=== PATIENT | female | born 1990 | race Caucasian/White ===

== ENCOUNTER 2016-12-02 06:26 | Emergency (ER) | payer OTHER ==
--- NOTE | ~2016-12-02 | EKG ---
PATIENT: SHMUEL MURRAY UNIT #: [id number] Ventricular Rate: 96 BPM Atrial Rate: 96 BPM P-R Interval: 132 ms QRS Duration: 76 ms Q-T Interval: 326 ms QTC Calculation(Bezet): 411 ms P Glenvil: 11 degrees Calculated R Glenvil: 31 degrees Calculated T Glenvil: 38 degrees Diagnosis Line: Normal sinus rhythm Diagnosis Line: Normal ECG Diagnosis Line: No previous ECGs available Diagnosis Line: Confirmed by SÁNCHEZ ADKINS MD ([id number]) on Diagnosis Line: 12/02/2016 3:27:27 PM INTERPRETING MD: JED SOLANO
--- NOTE | ~2016-12-02 | CT71 ---
[facility] A Service of [facility] RADIOLOGY TEXT RESULTS PATIENT: SHMUEL MURRAY LOCATION: [facility] : 88 UNIT #: [id number] AGE: [address]: Cassidy Reilly MD SEX: F ORDER DR: [id number] [facility] [address] [place], [place] [address] [id number] E MR#: [id number] Acc #: [id number] NAME: SHMUEL MURRAY : 1990 SEX: F STUDY DATE/TIME: 12/02/2016 7:25 UNIT: [facility] ROOM: STUDY DESCRIPTION: CT Head Wo Contrast Attending Physician: Cassidy Reilly M.D. Ordering Physician: Willa Roa M.D. Primary Care Physician: Primary Care Physician No MEDICAL IMAGING REPORT This report is preliminary unless electronic signature is present EXAM CT of the abdomen and pelvis without contrast media HISTORY Lightheaded, fell down stairs at 03:30 hours with head pain. TECHNIQUE Transaxial imaging of the brain was performed without contrast media. Bone and soft tissue windows are reviewed. This CT exam was performed with one or more of the following radiation dose reduction techniques: automatic exposure control, adjustment of mA and/or kV according to patient size, and iterative reconstruction. FINDINGS Ventricular size and configuration is normal. No intra or extraaxial mass lesions, fluid collections, or mass effect are seen. No focal areas of low attenuation or evidence of acute hemorrhage. The study does show mild paranasal sinus disease in the left sphenoid air cells. Mastoid air cells are clear. CONCLUSION 1. Negative noncontrast CT of the brain. 2. Mild inflammatory disease left sphenoid air cells. Dictated by... Srinath Lees M.D. THIS IS AN ELECTRONICALLY VERIFIED REPORT Srinath Lees M.D. at 12/03/2016 8:00 AM Flor TD: 12/02/2016 10:18 [facility] A Service of [facility] RADIOLOGY TEXT RESULTS PATIENT: SHMUEL MURRAY LOCATION: [facility] #: [id number] : [birth year] UNIT #: [id number] AGE: [address]: Cassidy Reilly MD SEX: F ORDER DR: JOB #: [id number] MEDICAL IMAGING REPORT COPY
[~2016-12-02 06:26] MED LIST: BENTYL20 MG PO; MOTRIN600 M2 PO
[2016-12-02 06:36] LABS: BASOPHIL% 0.3 % (0-2.5); DIFF IND YES; EOSINOPHIL% 0.2 % (0.0-7.0); HEMATOCRIT 43.4 % (35.0-45.0); HEMOGLOBIN 14.5 gm/dL (12.0-16.0); LYMPHOCYTE# 2.7 X10e3 (1.0-3.5); LYMPHOCYTE% 17.3 % (17.0-45.0); MEAN CELL VOLUME 86.7 FL (83-96); MEAN CORPUSCULAR HEMOGLOBIN 28.9 PG (28-34); MEAN CORPUSCULAR HGB CONC 33.3 g/dL (30-36); MEAN PLATELET VOLUME 9.1 FL (6.5-11.5); MONOCYTE# 0.9 X10e3 (0-1.0); MONOCYTE% 5.8 % (3.0-12.0); NEUTROPHIL# 11.9 X10e3 (1.5-7.1); NEUTROPHIL% 76.4 % (40-75); PLATELET COUNT 304 X10e3 (140-420); RED BLOOD COUNT 5.01 X10e (3.90-5.30); RED CELL DISTRIBUTION WIDTH 13.8 % (11.0-15.5); WHITE BLOOD COUNT 15.6 X10e3 (4.0-10.5)
[2016-12-02 06:49] LABS: PLATELET ESTIMATE NORMAL (NORMAL); RBC NORMAL YES
[2016-12-02 07:05] LABS: BLOOD UREA NITROGEN 11 mg/dL (9-23); CALCIUM SERUM 9.7 mg/dL (8.4-10.2); CARBON DIOXIDE 26 mmol/L (22-31); CHLORIDE 105 mmol/L (100-111); GLOM FILT RATE Estimated ABOVE60 mL/min (>60); GLUCOSE FASTING 105 mg/dL (70-110); POTASSIUM 3.8 mmol/L (3.5-5.1); SODIUM 140 mmol/L (135-145)
[2016-12-02 07:23] LABS: URINE SOURCE CLEAN CATCH
[2016-12-02 07:28] LABS: URINE APPEARANCE CLOUDY; URINE BLOOD 1+ (NEG); URINE COLOR DK YELLOW; URINE GLUCOSE NEG (NEG); URINE KETONE TRACE (NEG); URINE LEUKOCYTE ESTERASE 2+ (NEG); URINE NITRATE POS (NEG); URINE PROTEIN TRACE (NEG); URINE SPECIFIC GRAVITY 1.031 (1.003-1.035)
[2016-12-02 07:32] LABS: CULTURE INDICATED? YES; URINE SQUAMOUS EPITHELIAL CELL MOD /[HPF]
[2016-12-02 07:46] LABS: URINE BILIRUBIN NEG (NEG); URINE MUCUS PRESENT
[2016-12-02 07:47] LABS: URINE GRANULAR CAST 0-2 /[HPF]
[2016-12-02 07:48] LABS: URINE BACTERIA AUWI 3+ (NEGATIVE)
[2016-12-02 07:54] LABS: AMPHETAMINE NEG (NEG); BARBITURATES NEG (NEG); BENZODIAZEPINES POS (NEG); COCAINE NEG (NEG); MARIJUANA POS (NEG); OPIATES NEG (NEG); TRICYCLIC ANTIDEPRESSANTS NEG (NEG); U METHADONE NEG (NEG)
== END 2016-12-02 09:31 | disposition home or self-care (01) ==
LOC: CED 06:26
PROVIDERS: Student in an Organized Health Care Education/Training Program
DX: S09.90XA Unspecified injury of head, initial encounter (principal); R42 Dizziness and giddiness; F12.10 Cannabis abuse, uncomplicated; F19.10 Other psychoactive substance abuse, uncomplicated; W10.9XXA Fall (on) (from) unspecified stairs and steps, initial encounter; Y92.009 Unspecified place in unspecified non-institutional (private) residence as the place of occurrence of the external cause
CPT/HCPCS: 36415; 70450; 80048; 80307; 81003; 84703; 85025; 87086; 87088; 87186; 93005; 96361; 96374; 99284; G0480; J2405